=== PATIENT | female | born 1990 | race Caucasian/White ===

== ENCOUNTER 2017-07-13 15:33 | Emergency (ER) | payer MEDICAID ==
[~2017-07-13] VITALS: Ht 167.6 cm; Wt 112.6 kg
[2017-07-13 16:07] VITALS: BP 131/78
== END 2017-07-13 17:01 | disposition home or self-care (01) ==
LOC: ED 16:55
DX: R59.1 Generalized enlarged lymph nodes (principal)
CPT/HCPCS: 99281